=== PATIENT | male | born 1980 | race Caucasian/White ===

== ENCOUNTER 2019-02-20 08:19 | Day surgery (SDC) | payer BC ==
[~2019-02-20 08:19] MED LIST: Acetaminophen TAB* 325 MG ONE; Acetaminophen TAB* 325 MG PO ONE; Buffered Lidocaine 1% SYRIN* 1 ML/SYRINGE INTRADERM ONE; Lactated Ringers 1000 ML Bag* 1,000 ML IV SCH
[2019-02-20] MEDS ORDERED: Bupivacaine 0.25% SDV* 30 ML ONE (08:48)
[2019-02-20] MEDS ORDERED: ceFAZolin 2 GM in NS PREMIX(*) 2 GM/100 ML BAG IVPB ONE (08:51)
[2019-02-20] MEDS ORDERED: Famotidine IV* 10 MG/ML 2 ML (20 mg) ONE (08:54)
[2019-02-20] MEDS ORDERED: fentaNYL* 50 MCG/ML 2 ML VIAL (100 MCG VIAL) ONE (08:58)
[2019-02-20] MEDS ORDERED: Dexamethasone IV* 4 MG/ML 1 ML (4 MG) ONE (08:58)
[2019-02-20] MEDS ORDERED: Propofol* 10 MG/ML 20 ML BTL ONE (08:58)
[2019-02-20] MEDS ORDERED: Midazolam* 1 MG/ML 2 ML VIAL (2 MG) ONE (08:58)
[2019-02-20] MEDS ORDERED: Ketorolac INJ* 30 MG/ML 1 ML VIAL ONE (08:58)
[2019-02-20] MEDS ORDERED: Lidocaine 2% PF * 5 ML VIAL ONE (08:58)
[2019-02-20] MEDS ORDERED: HYDROcodone/ACETAMIN 5-325 MG* 1 TAB PO PRN (09:21)
[2019-02-20] MEDS ORDERED: Ondansetron INJ* 2 MG/ML VIAL IV PRN (09:21)
[2019-02-20] MEDS ORDERED: Naloxone* 0.4 MG/ML 1 ML VIAL IV PRN (09:21)
[2019-02-20] MEDS ORDERED: Levalbuterol 0.63MG/3ML NEB* UNIT OF USE INH PRN (09:21)
[2019-02-20] MEDS ORDERED: DiMENhydriNATE IV* 50 MG/ML VIAL IV PUSH PRN (09:21)
[2019-02-20] MEDS ORDERED: HYDROcodone/ACETAMIN 5-325 MG* 1 TAB ONE (10:34)
[2019-02-20 11:46] VITALS: BP 123/77
--- NOTE | 2019-02-20 11:56 | OP ---
DATE OF OPERATION: 02/20/19 - [facility] DATE OF : 82 SURGEON: Henry Bonilla MD [employer] GLAZER: SARAH Torres ANESTHESIOLOGIST: Dr. Del Angel. ANESTHESIA: General. PRE-OP DIAGNOSIS: Right posttraumatic carpal tunnel syndrome. POST-OP DIAGNOSIS: Right posttraumatic carpal tunnel syndrome. OPERATIVE PROCEDURE: 1. Right wrist carpal tunnel release. 2. Right hypothenar fat pad transfer. INDICATIONS: Abisai has posttraumatic carpal tunnel syndrome. It has been slowly improving, but clearly it is lingering. His crush injury was about 9 months ago. We talked about risks and benefits. He understands there is a risk that he may still have some neurogenic symptoms after the surgery. I told him I would try to do everything I could to make sure the nerve is decompressed and well padded to see if we could get him feeling better. ESTIMATED BLOOD LOSS: 2 mL. COMPLICATIONS: None. FINDINGS: See above and below. DESCRIPTION OF PROCEDURE: Abisai was seen in the preoperative holding area. The correct site, side, and procedure were identified. We came back to the operating room where the arm was prepped and draped in the usual fashion and a time-out was performed. The arm was exsanguinated with the Esmarch and the tourniquet was inflated to 250 mmHg. I then made an incision in the proximal palm that was brought back across the ulnar aspect of the wrist in a Lincoln type fascia. Dissection was carried down through the subcutaneous tissue and subcutaneous tissue was retracted ulnarly. The palmar fascia was split. The transverse carpal ligament was exposed as was the distal antebrachial fascia. I then went ahead and made the release of the transverse carpal ligament from distal to proximal. This was done just off the ulnar aspect of the hook of the hamate. The release was completed distally with a tenotomy scissors. I then came proximal and released the distal antebrachial fascia to a level several centimeters, probably 7 or 8 cm, proximal to the wrist flexion crease. The nerve was thoroughly decompressed. It did look like it had been compressed right underneath the transverse carpal ligament. I performed a slight neurolysis just to make sure there were no adhesions between the nerve and the adjacent soft tissues. These were all freed up. Lastly due to the posttraumatic nature of the carpal tunnel, I decided to do a hypothenar fat pad transfer. I went ahead and released the hypothenar fat pad taking care to preserve the perforating arteries that perfuse it and also the ulnar artery deep to that both proximal and through Guyon canal. Once I had fully mobilized the hypothenar fat pad, I rotated it radially and sewed it to the undersurface of the transverse carpal ligament superficial to the median nerve with 4-0 Vicryl suture. This covered the median nerve very nicely through the carpal tunnel. After completing the hypothenar fat pad transfer, we irrigated out the wound. The skin was closed with 4-0 nylon suture. Wound was dressed with Xeroform, 4x4 's, sterile Webril, and an Nir bandage. He was then woken up and taken to the recovery room in stable condition. [id number]/CPS #: [id number] MTDD
== END 2019-02-20 11:02 | disposition home or self-care (01) ==
LOC: OREAST 08:19
PROVIDERS: ATTEND Orthopaedic Surgery Hand Surgery
DX: G56.01 Carpal tunnel syndrome, right upper limb (principal); F17.210 Nicotine dependence, cigarettes, uncomplicated; M54.5 Low back pain
CPT/HCPCS: A9270-GY; J0690; J1100; J1885; J2250; J2704; J3010; J3490